=== PATIENT | male | born 1950 | race Two or more races ===

== ENCOUNTER → 2022-03-03 | Day surgery (SDC) | payer OTHER ==
[~2022-03-03] MED LIST: ALPRAZolam 0.25 MG TAB PO PRN; ALPRAZolam 0.5 MG TAB PO PRN; ASPIRIN 325 MG TAB PO PRN; HEPARIN SODIUM,PORCINE 10,000 UNIT in SODIUM CHLORIDE 0.9% 1,000 ML IRRIGATION PRN; HEPARIN SODIUM,PORCINE 2,500 UNIT in SODIUM CHLORIDE 0.9% 250 ML IRRIGATION PRN; LIDOCAINE 1% INJ 10MG/ML (5 ML VIAL-PF) SQ ONE; MIDAZOLAM 2 MG/2 ML VIAL IVP ONE; SODIUM CHLORIDE 0.9% 1,000 ML IV ONE; SODIUM CHLORIDE 0.9% 1,000 ML in EMPTY BAG 1 BAG IV ONE; VERAPAMIL 2.5 MG/ML 2 ML AMP ONE; ZOLPIDEM 5 MG TAB PO PRN; fentaNYL (PF) 50 MCG/ML 2 ML AMP IVP ONE; fentaNYL (PF) 50 MCG/ML 2 ML AMP ONE
[2022-03-03 09:10] LABS: Glucose,Whole Blood 119 mg/dL (70-110)
[2022-03-03 09:15] VITALS: RESP 16; TEMP 98
[2022-03-03 09:20] LABS: Basophils % (A) 0 %; Eosinophils # (A) 0.2 k/uL (0-0.7); Eosinophils % (A) 2 %; HCT 46.4 % (39.0-53.0); HGB 15.1 gm/dL (13.0-17.5); Lymphocytes # (A) 2.5 k/uL (1.0-4.8); Lymphocytes % (A) 26 %; MCH 27.1 pg (25.0-35.0); MCHC 32.6 g/dL (31.0-37.0); MCV 83.1 fL (80.0-100.0); Mean Platelet Volume 7.4; Monocytes # (A) 0.7 k/uL (0-1.0); Monocytes % (A) 7 %; Neutrophils # (A) 5.9 k/uL (1.3-7.7); Neutrophils % (A) 61 %; Platelet Count 301 k/uL (150-450); RBC 5.58 m/uL (4.30-5.90); RDW 14.4 % (11.5-15.5); WBC 9.6 k/uL (3.8-10.6)
[2022-03-03 09:30] LABS: Calcium 8.8 mg/dL (8.4-10.2)
--- NOTE | 2022-03-03 11:17 | P.OP ---
Date of Procedure: 03/03/22 Description of Procedure: Preoperative diagnosis: Bilateral lower extremity claudication, Hao 3 peripheral arterial disease Postoperative diagnosis: Same Procedure: [Ultrasound-guided left radial artery access Aortogram with runoffs Moderate conscious sedation time 32 minutes] Surgeon: Carlene Becerra D.O. EBL: [Less than 10 mL] IV fluids: [See records] Urine output: [Not measured] Drains: [None] Complications: [None immediately apparent] Condition: [Stable to recovery] Operative indication and findings: [Patient is a 71-year-old male with intermittent claudication of his lower extremities. In the past has been told initially not much to be done given his age and he just deals with that. At this time with the abnormal findings on his arterial Dopplers he was recommended to undergo an angiogram. Risks and benefits were discussed he seemingly understood and was willing to proceed.] Procedure in detail: [Patient was taken to the operative suite and placed in supine position. The left radial artery was patent without significant calcification. Ultrasound was utilized and access was obtained and Seldinger technique was utilized to place a 5-Hungarian standard sheath. Catheters and wires were utilized to access the abdominal aorta and an aortogram was performed. The catheter was advanced to the level of bifurcation and bilateral lower extremity runoffs were performed. Catheters and wires were removed. A TR band was placed. Angiographic findings the aorta appears normal in course and caliber. Visualized portions of the celiac SMA and renal arteries appear patent without significant disease. Numerous lumbar arteries are visualized. There is evidence of an abdominal aortic aneurysm versus distal aortic ectasia. Is fusiform in nature. There does not appear to be any obvious areas of stenosis. On the right, the common internal and external iliac arteries appear patent. There is mild disease to the external iliac artery but does not appear flow limiting. On the left there appears to be possible evidence of aneurysmal formation at the common iliac artery. The internal and external appear widely patent. On the right, the common femoral and profunda appear patent without significant disease. The superficial femoral artery has moderate diffuse disease proximally with abrupt occlusion at the mid thigh. There is appears to be reconstitution at the popliteal artery behind the knee. There is three-vessel runoff at its takeoff with evidence of essentially 3 vessels of level of the ankle, due to motion artifact was difficult to visualize at the ankle. On the left, the common femoral and profunda appear widely patent without significant disease. There is significant disease of the proximal superficial femoral artery with narrowing. There is diffuse disease throughout the superficial femoral artery with areas of occlusion and subsequent reconstitution at the distal superficial femoral artery. There appears to be a patent popliteal artery and three-vessel runoff at the takeoff. Again visualization further distally is difficult however the posterior tibial artery anterior and peroneal are visualized at the distal calf.] Plan - Discharge Summary Discharge Rx Participant: No New Discharge Prescriptions: No Action Metoprolol Tartrate [Lopressor] 25 mg PO BID RX: Aspirin 325 mg PO DAILY lisinopriL [Zestril] 20 mg PO BID amLODIPine [Norvasc] 10 mg PO DAILY Tamsulosin [Flomax] 0.4 mg PO DAILY Rosuvastatin [Crestor] 20 mg PO HS Cholecalciferol [Vitamin D3 (25 Mcg = 1000 Iu)] 50 mcg PO DAILY RX: metFORMIN HCL 500 mg PO DAILY Discharge Medication List Metoprolol Tartrate [Lopressor] 25 mg PO BID 10/06/13 [History] RX: Aspirin 325 mg PO DAILY 10/06/13 [History] lisinopriL [Zestril] 20 mg PO BID 10/06/13 [History] Cholecalciferol [Vitamin D3 (25 Mcg = 1000 Iu)] 50 mcg PO DAILY 03/01/22 [History] RX: metFORMIN HCL 500 mg PO DAILY 03/01/22 [History] Rosuvastatin [Crestor] 20 mg PO HS 03/01/22 [History] Tamsulosin [Flomax] 0.4 mg PO DAILY 03/01/22 [History] amLODIPine [Norvasc] 10 mg PO DAILY 03/01/22 [History] Follow up Appointment(s)/Referral(s): Carlene Becerra DO [STAFF PHYSICIAN] - 1 Week (APPOINTMENT MADE ON March @ 12:00PM ) Patient Instructions/Handouts: Peripheral Artery Disease (ED), Moderate Sedation (DC) Activity/Diet/Wound Care/Special Instructions: *NO LIFTING, PUSHING, OR PULLING ANYTHING OVER 5 POUNDS FOR 5 DAYS *NO DRIVING FOR 3 DAYS *YOU CAN SHOWER TOMORROW BUT DO NOT SUBMERSE YOUR PUNCTURE SITE IN WATER FOR A FEW DAYS TO PREVENT INFECTION - SO NO TUB BATHS, POOLS HOT TUBS, DISHES...ETC *ANY SIGNS OF BLEEDING (HARDNESS, SWELLING, OR EXCESSIVE BRUISING) HOLD DIRECT PRESSURE ON YOUR PUNCTURE SITE AND COME TO THE NEAREST EMERGENCY ROOM TO GET YOUR PUNCTURE SITE LOOKED AT - DO NOT DRIVE YOURSELF! EITHER CALL EMS OR HAVE SOMEONE DRIVE YOU! Discharge Disposition: HOME SELF-CARE
--- NOTE | 2022-03-03 11:25 | IR ---
EXAMINATION TYPE: IR angio abdominal w runoff DATE OF EXAM: 03/03/2022 COMPARISON: NONE HISTORY: Fluoroscopy time. Fluoroscopy was provided to the referring clinician.
[2022-03-03 15:53] VITALS: PULSE 69
[2022-03-03 16:14] VITALS: BP 151/71
== END | disposition home or self-care (01) ==
LOC: CATHCVL 08:40
PROVIDERS: ATTEND Surgery
DX: I73.9 Peripheral vascular disease, unspecified (principal); Z79.84 Long term (current) use of oral hypoglycemic drugs; Z79.82 Long term (current) use of aspirin; Z79.899 Other long term (current) drug therapy; I10 Essential (primary) hypertension; I63.9 Cerebral infarction, unspecified; I25.2 Old myocardial infarction; E11.40 Type 2 diabetes mellitus with diabetic neuropathy, unspecified
CPT/HCPCS: 36200; 75625; 75716; 76937; 80048; 85025; 99152; 99153; C1769 ×3; C1894; J2250; J2001; J3010